=== PATIENT | male | born 1990 | race Caucasian/White ===

== ENCOUNTER 2017-12-01 18:19 | Emergency (ER) | payer BC ==
--- NOTE | 2017-12-01 18:47 | ED PDOC ---
Arrival/HPI - General Chief Complaint: Medical Clearance Time Seen by Provider: 12/01/17 18:46 Historian: Patient - History of Present Illness Narrative History of Present Illness (Text): 12/01/17 18:50 pt p/w + sudden onset of feeling b/l forearm cramps/swelling/numbness/tingling; pt states he has been under stress lately, and just finished a 5 days travel for work up in [place]; pt states he just drove back from [place] today, just prior to Emergency department arrival and came straight to Emergency department for the said above symptoms and wants to get a general medical exam; pt states at work ~ 2-3 days ago, a drill accidentally fell and knocked him on the left side of his head, no gross bleeding, + felt pain and no LOC and did not seek any medical attention; pt states + mild general malaise; pt has been working in the heat as well; pt states no fever/chills, no cp/sob/palpitations, no abd pain, no n/v, no numbness/tingling, no urinary/bowel changes, no incontinence, no fall/trauma/sick contact; pt denied slurr speech, no gross bleeding; pt is here for further eval; pt's without other complaints pt is expecting his 4th child soon and is being honored with a baby shower this weekend, pt expressed some distress. pt states no SI/HI, pt denied hallucinations - visual/tactile/auditory PCP: pt does not remember family hx: unremarkable Time/Duration: Prior to Arrival Symptom Onset: Sudden Symptom Course: Unchanged Quality: Tightness, Cramping Activities at Onset: Rest Context: Home, Work Past Medical History - Provider Review Nursing Documentation Reviewed: Yes - Travel History Have you recently traveled outside [place] w/in the past 3 mons?: No - Past History Past History: Non-Contributing - Infectious Disease Hx of Infectious Diseases: None Family/Social History - Physician Review Nursing Documentation Reviewed: Yes Family/Social History: Unknown Family HX Smoking Status: smokes weed Hx Alcohol Use: No Hx Substance Use: Yes ([place]) Hx Substance Use Treatment: No Allergies/Home Meds Allergies/Adverse Reactions: Allergies No Known Allergies Allergy (Unverified 12/01/17 18:56) Home Medications: Home Meds Medication Instructions Recorded Confirmed No Known Home Med 12/01/17 12/01/17 Review of Systems - Review of Systems Constitutional: Normal Eyes: Normal ENT: Normal Respiratory: Normal Cardiovascular: Normal Gastrointestinal: Normal Genitourinary Male: Normal Musculoskeletal: Other (b/l forearm cramps/tightness) Skin: Normal Neurological: Normal Endocrine: Normal Hemo/Lymphatic: Normal Psychiatric: Normal, Anxiety Physical Exam - Physical Exam Narrative Physical Exam (Text): 12/01/17 General: alert/awake, GCS = 15, oriented x 3, resting in bed, uncomfortable, cooperative, interactive; NAD; slightly jittery/anxious appearing, with occasional pressured speech Head: NC/AT EYE: PERRLA, EOMI, sclera anicteric, no nystagmus, no photophobia; visual field intact b/l Facial: WNL Oral: uvula/tongue are midline, no exudate/lesions, no drooling/stridor, no dysphonia; intact dentitions; mild dry oral mucosa NECK: intact ROM, no midline tenderness, no nuchal rigidity, no meningeal signs ; no step off Chest: CTA b/l, no w/r/r; no tachypenia, no accessory muscle use noted Chest Wall: no focal tenderness, no gross deformities, no crepitus, no lesions/ rashes noted Cardiac: +S1, +S2, no m/r/r, no tachycardia Abdominal: +BS, soft/nd/nt, well nourished patient; no masses/rebound/guarding/ rigidity; no mackay's sign, no mcburney's point tenderness Extremities: intact ROM, strength 5/5 grossly intact in all limbs, neurovasc intact b/l; + ambulatory; reflex +2/2; no pitting edema/gross swelling noted b/l , no jose's sign BACK: no step off, no midline tenderness, NO crepitus, no gross deformities noted; Intact ROM SKIN: cap refill < 1 sec, no ulcerations, no petechiae, no rashes NEURO: CNII-XII WNL, no facial asymmetries, no slurr speech, oriented x 3 NIH stroke scale ~ 0 Psych: normal insight, slightly anxious affect; follows command with ease Vital Signs Reviewed: Yes Vital Signs Temp Pulse Resp BP Pulse Ox 12/01/17 20:24 88 18 147/99 H 99 12/01/17 18:50 98.6 F 89 19 139/85 99 Temperature: Afebrile Blood Pressure: Hypertensive Pulse: Regular Respiratory Rate: Normal Appearance: Positive for: Well-Appearing, Non-Toxic, Uncomfortable. No: Comfortable, Ill-Appearing Pain Distress: None Mental Status: Positive for: Alert and Oriented X 3 - Systems Exam Head: Present: Atraumatic, Normocephalic Medical Decision Making ED Course and Treatment: 12/01/17 Impression: anxious, b/l forearm tightness/numbness/tingling; wants to be checked Differential Diagnosis included but are not limited to: anxiety?, general medical exam Plan: -- EKG -- Labs -- Ativan -- Urinalysis -- Reassess and disposition Progress Notes: 12/01/17 20:15 pt is doing well pt is comfortable pt felt improved vital signs: elevated BP pt is made aware aware of his medical results pt encouraged fluids pt is encouraged keeping cool during the Heat wave pt is encouraged outpt f/u pt will be discharged home Re-evaluation Time: 20:15 - Lab Interpretations Lab Results: 12/01/17 19:18 12/01/17 19:18 Lab Results 12/01/17 19:19: Urine Color Yellow, Urine Appearance Clear, Urine pH 6.0, Ur Specific [place] <= 1.005, Urine Protein Negative, Urine Glucose (UA) Negative, Urine Ketones Negative, Urine Blood Negative, Urine Nitrate Negative, Urine Bilirubin Negative, Urine Urobilinogen 0.2, Ur Leukocyte Esterase Negative 12/01/17 19:18: TSH 3rd Generation 0.71 12/01/17 19:18: Sodium 141, Potassium 4.0, Chloride 106, Carbon Dioxide 21, Anion Gap 18, BUN 11, Creatinine 0.8, Est GFR ( Amer) > 60, Est GFR (Non- Af Amer) > 60, Random Glucose 110, Calcium 9.9, Total Bilirubin 0.6, AST 62 H, ALT 76 H, Alkaline Phosphatase 75, Total Creatine Kinase 659 H, CK-MB (CK-2) 1.7 , CK-MB (CK-2) % Cancelled, Total Protein 8.2, Albumin 4.7, Globulin 3.5, Albumin/Globulin Ratio 1.4 12/01/17 19:18: WBC 10.9, RBC 5.42, Hgb 14.9, Hct 43.2, MCV 79.7 L, MCH 27.5, MCHC 34.5, RDW 13.9, Plt Count 293, MPV 9.8, Gran % 68.0, Lymph % (Auto) 25.6, [place] % (Auto) 5.8, Eos % (Auto) 0.4 L, Baso % (Auto) 0.2, Gran # 7.45 H, Lymph # (Auto) 2.8, [place] # (Auto) 0.6, Eos # (Auto) 0.0, Baso # (Auto) 0.02 12/01/17 18:55: POC Glucose (mg/dL) 102 I have reviewed the lab results: Yes Interpretation: Abnormal lab values (elevated CK; elevated LFTs) - EKG Interpretation EKG Interpretation (Text): 12/01/17 20:17 NSR at 85 bpm, normal axis, no ectopy, no st-t changes, NORMAL EKG; no old ekg to compare with Interpreted by ED Physician: Yes Type: 12 lead EKG Comparison: No previous EKG avail. - Medication Orders Current Medication Orders: Discontinued Medications Sodium Chloride (Sodium Chloride 0.9%) 1,000 mls @ 999 mls/hr IV .Q1H1M STA Stop: 12/01/17 20:41 Last Admin: 12/01/17 19:48 Dose: 999 mls/hr eMAR Start Stop Document 12/01/17 19:48 AD (Rec: 12/01/17 19:49 AD [id number]) Intravenous Solution Start Date 12/01/17 Start Time 19:49 Lorazepam (Ativan) 1 mg PO ONCE ONE PRN Reason: Protocol Stop: 12/01/17 19:00 Last Admin: 12/01/17 19:20 Dose: 1 mg - Scribe Statement The provider has reviewed the documentation as recorded by the Frank Corey Provider Caneloibe Attestation: All medical record entries made by the Frank were at my direction and personally dictated by me. I have reviewed the chart and agree that the record accurately reflects my personal performance of the history, physical exam, medical decision making, and the department course for this patient. I have also personally directed, reviewed, and agree with the discharge instructions and disposition. Disposition/Present on Arrival - Present on Arrival Any Indicators Present on Arrival: No History of DVT/PE: No History of Uncontrolled Diabetes: No Urinary Catheter: No History of Decub. Ulcer: No History Surgical Site Infection Following: None - Disposition Have Diagnosis and Disposition been Completed?: Yes Diagnosis: Anxious appearance, Elevated LFTs, Dehydration, General medical exam, Elevated blood pressure reading Disposition: HOME/ ROUTINE Disposition Time: 20:45 Patient Plan: Discharge Patient Problems: Current Active Problems Problem Status Onset Anxious appearance Acute Elevated LFTs Acute Dehydration Acute General medical exam Acute Elevated blood pressure reading Acute Condition: STABLE Discharge Instructions (ExitCare): Dehydration, Adult (DC), Anxiety, Adult (DC) , Yearly Physical for Adults, Stress, Hypotension (ED), Hypertension (ED) Print Language: TONGAN Additional Instructions: Make sure to see your doctor in 1-2 days DRINK PLENTY OF FLUIDS take your medications as prescribed STOP SMOKING if you drink alcohol, STOP DRINKING ALCOHOL STAY COOL during this week/weekend with the heat wave RETURN TO ED IF worse pain, cant breath, persistent vomiting, high fever >101- 102 for hours, altered behavior, slurr speech, facial changes, focal weakness ( arm/leg or both), unable to urinate, heavy/persistent bleeding, passing out, chest pain, or other medical emergencies Referrals: PCP,NO [Non-Staff] - Follow up with primary [facility] [place] [Outside] - Follow up with primary [facility] [Outside] - Follow up with primary [facility] [place]] - Follow up with primary Forms: [facility] ([place]), WORK NOTE
[2017-12-01 18:50] VITALS: BMI 38.0
[2017-12-01 18:51] VITALS: TEMP 98.6
[2017-12-01 19:33] LABS: BASO # 0.02 K/mm3 (0.0-2.0); BASO % 0.2 % (0.0-3.0); EOS % 0.4 % (1.5-5.0); GRAN # 7.45 (1.4-6.5); HEMOGLOBIN 14.9 g/dL (14.0-18.0); LYMPH # 2.8 (1.2-3.4); LYMPH % 25.6 % (22.0-35.0); MEAN CELL VOLUME 79.7 fl (80.0-105.0); MEAN CORPUSCULAR HEMOGLOBIN 27.5 pg (25.0-35.0); MEAN CORPUSCULAR HGB CONC 34.5 g/dl (31.0-37.0); MEAN PLATELET VOLUME 9.8 fl (7.0-11.0); MONO # 0.6 (0.1-0.6); MONO % 5.8 % (1.0-6.0); RBC 5.42 10^6/uL (3.5-6.1); RED CELL DISTRIBUTION WIDTH 13.9 % (11.5-14.5); WHITE BLOOD COUNT 10.9 10^3/ul (4.5-11.0)
[2017-12-01 19:33] LABS: URINE BILIRUBIN NEGATIVE (NEGATIVE); URINE BLOOD NEGATIVE (NEGATIVE); URINE GLUCOSE (UA) NEGATIVE (NEGATIVE); URINE LEUKOCYTE ESTERASE NEGATIVE Leu/uL (NEGATIVE); URINE PROTEIN NEGATIVE mg/dL (<30 mg/dL); URINE UROBILINOGEN 0.2 E.U./dL (<1 E.U./dL)
[2017-12-01 19:35] LABS: URINE APPEARANCE CLEAR (CLEAR); URINE COLOR YELLOW (YELLOW)
[2017-12-01 19:38] LABS: ALB/GLOB RATIO 1.4 (1.1-1.8); ALBUMIN 4.7 g/dL (3.0-4.8); ALT/SGPT 76 U/L (7-56); AST/SGOT 62 U/L (17-59); BLOOD UREA NITROGEN 11 mg/dL (7-21); CALCIUM 9.9 mg/dL (8.4-10.5); GFR AFRICAN-AMERICAN > 60; GFR NON-AFRICAN AMERICAN > 60
[2017-12-01] MEDS ORDERED: Sodium Chloride 0.9% 1,000 ML IV STA (19:41)
[2017-12-01 19:56] LABS: CK-MB 1.7 ng/mL (0.0-3.6)
[2017-12-01 20:25] VITALS: BP 147/99; PULSE 88; RESP 18
[2017-12-01 21:03] VITALS: O2SAT 100
[2017-12-01 21:11] LABS: BARBITURATES, UR NEGATIVE (NEGATIVE); BENZODIAZEPINES, UR NEGATIVE (NEGATIVE); OPIATES, UR NEGATIVE (NEGATIVE); PHENCYCLIDINE, UR NEGATIVE (NEGATIVE)
--- NOTE | 2017-12-02 22:48 | CARD ---
APPROVED REPORT EKG Measurement Heart [id number] <Conclusion> Normal sinus rhythm Normal ECG
== END 2017-12-01 20:45 | disposition home or self-care (01) ==
LOC: ED 18:19 → MERGE 18:19 → ED 20:45
DX: E86.0 Dehydration (principal); R79.89 Other specified abnormal findings of blood chemistry; F41.9 Anxiety disorder, unspecified; R03.0 Elevated blood-pressure reading, without diagnosis of hypertension
CPT/HCPCS: 80053; 81003; 82550; 82553; 82948; 84443; 85025; 93005; 99283; G0480; J7030